=== PATIENT | male | born 1970 | race African-American/Black ===

== ENCOUNTER 2019-08-20 11:33 | Emergency (ER) | payer OTHER ==
[~2019-08-20] VITALS: Ht 182.9 cm; Wt 103.7 kg
[2019-08-20 11:42] VITALS: BP 0/0
[2019-08-20] MEDS ORDERED: CYCL50CA3 PO (13:03)
[2019-08-20] MEDS ORDERED: COMP10 PO (13:03)
[2019-08-20] MEDS ORDERED: ACYC200C PO (13:03)
[2019-08-20] MEDS ORDERED: CHOL100018 PO (13:03)
[2019-08-20] MEDS ORDERED: SENN-176 PO (13:03)
[2019-08-20] MEDS ORDERED: FAMO20 PO (13:03)
[2019-08-20] MEDS ORDERED: CHLO25 PO (13:03)
[2019-08-20] MEDS ORDERED: BUME1TAB34 PO (13:03)
[2019-08-20] MEDS ORDERED: ONDA-104 PO (13:03)
== END 2019-08-20 15:46 | disposition expired ==
LOC: EMS 11:34
DX: I46.9 Cardiac arrest, cause unspecified (principal)
CPT/HCPCS: 92950; 99291